=== PATIENT | male | born 1980 | race American Indian/Alaskan Native ===

== ENCOUNTER 2019-02-27 11:35 | Emergency (ER) | payer SELFPAY ==
[2019-02-27 12:21] VITALS: BP 162/102
--- NOTE | 2019-02-27 12:24 | Event Note ---
ED Screening Note Date of service: 02/27/19 Time: 12:20 ED Screening Note: 38 y o males presents feeling bad due to elevated bp and not on meds was given at ER but never followed up with pcp elevated BP, denies chest pain, ann, blurred vision This initial assessment/diagnostic orders/clinical plan/treatment(s) is/are subject to change based on patients health status, clinical progression and re- assessment by fellow clinical providers in the ED. Further treatment and workup at subsequent clinical providers discretion. Patient/guardian urged not to elope from the ED as their condition may be serious if not clinically assessed and managed. Initial orders include: clonidine ACC eval PCP referal nme
--- NOTE | 2019-02-27 13:38 | Emergency Department Report ---
ED General Adult HPI - General Chief complaint: High BP Stated complaint: HBP Time Seen by Provider: 02/27/19 12:20 Source: patient Mode of arrival: Ambulatory Limitations: No Limitations - History of Present Illness Initial comments: Patient is a 38-year-old -[place] male who has been noncompliant with his Norvasc who is presenting with elevated blood pressure. Patient states he was at work today and became very dizzy and his blood pressure was taken and it was elevated. The patient is not taking his medication approximately 6 months. He denies chest pain shortness of breath at this time. There's been no neurological deficits or decreased urination. - Related Data Previous Rx's Medication Instructions Recorded Last Taken Type Amlodipine Besylate [Norvasc] 5 mg PO DAILY #30 tablet 02/27/19 Unknown Rx Allergies Allergy/AdvReac Type Severity Reaction Status Date / Time No Known Allergies Allergy Unverified 02/27/19 11:37 ED Review of Systems ROS: Stated complaint: HBP Other details as noted in HPI Comment: All other systems reviewed and negative ED Past Medical Hx - Past Medical History Hx Hypertension: Yes - Surgical History Past Surgical History?: No - Social History Smoking Status: Never Smoker Substance Use Type: Alcohol - Medications Home Medications: Home Medications Medication Instructions Recorded Confirmed Last Taken Type Amlodipine Besylate [Norvasc] 5 mg PO DAILY #30 tablet 02/27/19 Unknown Rx ED Physical Exam - General Limitations: No Limitations General appearance: alert, in no apparent distress - Head Head exam: Present: atraumatic, normocephalic - Eye Eye exam: Present: normal appearance - ENT ENT exam: Present: mucous membranes moist - Neck Neck exam: Present: normal inspection - Respiratory Respiratory exam: Present: normal lung sounds bilaterally. Absent: respiratory distress, wheezes, rales, rhonchi - Cardiovascular Cardiovascular Exam: Present: regular rate, normal rhythm, normal heart sounds. Absent: systolic murmur, diastolic murmur, rubs, gallop - GI/Abdominal GI/Abdominal exam: Present: soft, normal bowel sounds. Absent: distended, tenderness, guarding, rebound - Rectal Rectal exam: Present: deferred - Extremities Exam Extremities exam: Present: normal inspection - Back Exam Back exam: Present: normal inspection - Neurological Exam Neurological exam: Present: alert, oriented X3 - Psychiatric Psychiatric exam: Present: normal affect, normal mood - Skin Skin exam: Present: warm, dry, intact, normal color. Absent: rash ED Course Vital Signs 02/27/19 12:20 Temperature 99.2 F Pulse Rate 85 Respiratory 18 Rate Blood Pressure 162/102 O2 Sat by Pulse 100 Oximetry ED Medical Decision Making - Medical Decision Making Patient be restarted on Norvasc be discharged home. Critical care attestation.: If time is entered above; I have spent that time in minutes in the direct care of this critically ill patient, excluding procedure time. ED Disposition Clinical Impression: Hypertensive urgency Disposition: DC-01 TO HOME OR SELFCARE Is pt being admited?: No Condition: Stable Instructions: Hypertension (ED) Prescriptions: Amlodipine Besylate [Norvasc] 5 mg PO DAILY #30 tablet Referrals: ROB ORTIZ MD [Staff Physician] - 3-5 Days Time of Disposition: 13:36
== END 2019-02-27 13:58 | disposition home or self-care (01) ==
LOC: ED 11:35
DX: I16.0 Hypertensive urgency (principal); I10 Essential (primary) hypertension

== ENCOUNTER 2019-04-09 08:38 | Emergency (ER) | payer SELFPAY ==
--- NOTE | 2019-04-09 09:37 | Emergency Department Report ---
Chief Complaint: Medical Clearance Stated Complaint: BLOOD PRESSURE MEDS REFILL Time Seen by Provider: 04/09/19 09:29 - ROS Review of Systems: Denies complaints - Exam Vital Signs: Vital Signs 04/09/19 08:48 Temperature 98.1 F Pulse Rate 74 Respiratory 18 Rate Blood Pressure 164/108 O2 Sat by Pulse 98 Oximetry Physical Exam: Alert and oriented x 3 Pt is asymptomatic and in no apparent distress. Ambulates without difficulty. Upon exam pt did not state that he had any symptoms to the provider. MSE screening note: Focused history and physical exam performed. Due to findings the following was ordered: Upon BP recheck he informed the nurse that he has a 8 out of 10 COOPER. Therefore he was given medication in clinic. Pt was explained ER services treatments offered; he was further explained pricing for non-emergent ailments that are self-pay. The pt decided to use outside care in form of a family medicine provider or urgent care. He was given a handout with such services offered. The pt was instructed to return to ER if emergent symptoms arise. He verbalized understanding and agreed to the plan of care. ED Disposition for MSE Clinical Impression: HTN (hypertension), Headache Condition: Stable Instructions: Hypertension (ED) Prescriptions: Lisinopril [Zestril TAB] 10 mg PO QDAY 10 Days #10 tablet
[2019-04-09] MEDS ORDERED: amLODIPine 5 MG TAB PO ONE (09:56)
[2019-04-09] MEDS ORDERED: LISINOPRIL 10 MG TAB PO ONE (09:56)
--- NOTE | 2019-04-09 10:08 | Emergency Department Report ---
ED General Adult HPI - General Chief complaint: Medical Clearance Stated complaint: BLOOD PRESSURE MEDS REFILL Time Seen by Provider: 04/09/19 09:29 Source: patient Mode of arrival: Ambulatory Limitations: No Limitations - History of Present Illness Initial comments: 38 yo BM in good health states that he is out of BP medication. Pt states that he has been out of medication for 1 day; he took his last dose this morning. -: This morning Location: head Radiation: non-radiation Severity scale (0 -10): 8 Quality: aching Consistency: constant Improves with: medication Worsens with: none Associated Symptoms: denies other symptoms Treatments Prior to Arrival: none - Related Data Previous Rx's Medication Instructions Recorded Last Taken Type Amlodipine Besylate [Norvasc] 5 mg PO DAILY #30 tablet 02/27/19 Unknown Rx Lisinopril [Zestril TAB] 10 mg PO QDAY 10 Days #10 tablet 04/09/19 Unknown Rx Allergies Allergy/AdvReac Type Severity Reaction Status Date / Time No Known Allergies Allergy Unverified 02/27/19 11:37 ED Review of Systems ROS: Stated complaint: BLOOD PRESSURE MEDS REFILL Other details as noted in HPI Constitutional: denies: chills, fever Eyes: denies: eye pain, eye discharge, vision change ENT: denies: ear pain, throat pain, dental pain Respiratory: denies: cough, orthopnea, SOB at rest Cardiovascular: as per HPI Endocrine: denies: see HPI, excessive sweating, increased hunger Gastrointestinal: denies: abdominal pain, nausea, diarrhea Musculoskeletal: denies: back pain, joint swelling, arthralgia Skin: denies: rash, lesions, change in hair/nails Neurological: headache. denies: numbness, paresthesias Psychiatric: denies: anxiety, depression, auditory hallucinations Hematological/Lymphatic: denies: easy bleeding, easy bruising, swollen glands ED Past Medical Hx - Past Medical History Previous Medical History?: Yes Hx Hypertension: Yes - Surgical History Past Surgical History?: No - Social History Smoking Status: Never Smoker Substance Use Type: Alcohol - Medications Home Medications: Home Medications Medication Instructions Recorded Confirmed Last Taken Type Amlodipine Besylate [Norvasc] 5 mg PO DAILY #30 tablet 02/27/19 Unknown Rx Lisinopril [Zestril TAB] 10 mg PO QDAY 10 Days #10 tablet 04/09/19 Unknown Rx ED Physical Exam - General Limitations: No Limitations General appearance: alert, in no apparent distress - Head Head exam: Present: atraumatic, normocephalic - Eye Eye exam: Present: normal appearance, PERRL, EOMI Pupils: Present: normal accommodation - ENT ENT exam: Present: normal exam, normal external ear exam - Neck Neck exam: Present: normal inspection, full ROM. Absent: tenderness - Respiratory Respiratory exam: Present: normal lung sounds bilaterally. Absent: wheezes, rales - Cardiovascular Cardiovascular Exam: Present: regular rate, normal rhythm, normal heart sounds - GI/Abdominal GI/Abdominal exam: Present: soft. Absent: distended, tenderness - Rectal Rectal exam: Present: deferred - Extremities Exam Extremities exam: Present: normal inspection, full ROM - Back Exam Back exam: Present: normal inspection, full ROM - Neurological Exam Neurological exam: Present: alert, altered, oriented X3, normal gait - Psychiatric Psychiatric exam: Present: normal affect - Skin Skin exam: Present: warm, dry, intact ED Course Vital Signs 04/09/19 04/09/19 04/09/19 08:48 10:05 10:12 Temperature 98.1 F 99.0 F Pulse Rate 74 63 63 Respiratory 18 16 Rate Blood Pressure 164/108 160/115 Blood Pressure [Left] Blood Pressure 160/115 [Right] O2 Sat by Pulse 98 97 Oximetry 04/09/19 04/09/19 10:13 10:51 Temperature Pulse Rate 63 62 Respiratory Rate Blood Pressure 160/115 Blood Pressure 156/106 [Left] Blood Pressure 167/107 [Right] O2 Sat by Pulse Oximetry ED Medical Decision Making - Medical Decision Making Pt was assessed and denied symptoms during exam. Upon BP recheck he informed the nurse that he has a 8 out of 10 COOPER. Pt states that he currently takes Lisinopril with no complaints. Therefore he was given medication in clinic. He was also given Amlodipine to lower current BP. Pt stated that his headache has resolved since taking medication in clinic. Pt was given a refill on Lisinopril and told to f/u with his PCP. The pt was instructed to return to ER if emergent symptoms arise. He verbalized understanding and agreed to the plan of care. Critical care attestation.: If time is entered above; I have spent that time in minutes in the direct care of this critically ill patient, excluding procedure time. ED Disposition Clinical Impression: HTN (hypertension), Headache Is pt being admited?: No Does the pt Need Aspirin: No Condition: Stable Instructions: Hypertension (ED) Additional Instructions: Pt was given a refill on Lisinopril and told to f/u with his PCP. The pt was instructed to return to ER if emergent symptoms arise. He verbalized understanding and agreed to the plan of care. Prescriptions: Lisinopril [Zestril TAB] 10 mg PO QDAY 10 Days #10 tablet Referrals: PRIMARY CAREMD [Primary Care Provider] - 3-5 Days Time of Disposition: 11:14
[2019-04-09 10:52] VITALS: BP 167/107
== END 2019-04-09 11:35 | disposition home or self-care (01) ==
LOC: ED 08:38
DX: I10 Essential (primary) hypertension (principal); R51 Headache; Z79.899 Other long term (current) drug therapy